=== PATIENT | male | born 1980 | race African-American/Black ===

== ENCOUNTER 2021-03-13 15:45 | Emergency (ER) | payer OTHER ==
[~2021-03-13] VITALS: Ht 198.1 cm; Wt 100.0 kg
--- NOTE | 2021-03-13 18:31 | REP ---
INDICATION: left testicular pain, blood from the penis. COMPARISON: None. TECHNIQUE: High-resolution bilateral scrotal sonography. FINDINGS: High-resolution bilateral scrotal sonography shows no evidence of intra testicular mass lesion on either side. Right testicular dimensions are 3.7 x 2.0 x 2.6 cm. Left testis measures 3.5 x 2.0 x 2.5 cm. 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 Testicular Doppler flow is present bilaterally. Resistive indices are measured at 0.40 on the right and 0.58 on the left. There are 2 right sided epididymal cysts measuring 3 mm in greatest diameter each. There also 2 3 mm cysts in the left epididymis. Bilateral small hydroceles are noted. IMPRESSION: No evidence of testicular mass lesion. Normal Doppler flow. Small bilateral hydroceles and small bilateral epididymal cysts. 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 Routine interval testicular self examination is recommended. <Electronically signed by Efrain Fuller > 03/13/21 [id number]
--- NOTE | 2021-03-13 18:32 | REP ---
INDICATION: left testicular pain, blood from the penis. COMPARISON: None. TECHNIQUE: Bilateral inguinal canal sonography. FINDINGS: Scanning of the inguinal canals are performed with and without Valsalva bilaterally. No cyst, mass, hernia, or abnormal fluid collection is seen. IMPRESSION: No evidence of hernia, cyst or mass. <Electronically signed by Efrain Fuller > 03/13/21 [id number]
[2021-03-13 19:03] LABS: GC DNA AMPLIFICATION POSITIVE (NEGATIVE)
[2021-03-13] MEDS ORDERED: cefTRIAXone 500MG VIAL (J0696 PER 250MG) IM ONE (19:25)
[2021-03-13] MEDS ORDERED: DOXYCYCLINE HYCLATE 100MG TABLET PO ONE (19:25)
[2021-03-13] MEDS ORDERED: LIDOCAINE 1% SDV 5ML VIAL DILUENT ONE (19:25)
[2021-03-13] MEDS ORDERED: DOXY1CAP62 PO (19:44)
[2021-03-13 20:06] VITALS: BP 170/100
--- NOTE | 2021-03-14 06:33 | ED PDOC ---
Post-Departure Follow-Up scrotal us faxed to dr clarisa fernandes for fu Kiel Lee MD Mar 14, 2021 06:33
== END 2021-03-13 20:17 | disposition home or self-care (01) ==
LOC: M ED 15:45
DX: N43.3 Hydrocele, unspecified (principal); A74.9 Chlamydial infection, unspecified; A54.9 Gonococcal infection, unspecified; N50.3 Cyst of epididymis; N50.89 Other specified disorders of the male genital organs
CPT/HCPCS: 76857; 76870; 81001; 87086; 87661; 93976; 96372; 99283; J0696